=== PATIENT | female | born 1985 | race African-American/Black ===

== ENCOUNTER 2018-08-08 18:21 | Inpatient (IN) | payer OTHER ==
[2018-08-08 18:41] VITALS: BMI 28.3
--- NOTE | 2018-08-08 21:37 | HP ---
CIWA Score - Admission Criteria OASAS Guidelines: Admission for Medically Managed Detox: Requires at least one of the followin. CIWA greater than 12 2. Seizures within the past 24 hours 3. Delirium tremens within the past 24 hours 4. Hallucinations within the past 24 hours 5. Acute intervention needed for co occurring medical disorder 6. Acute intervention needed for co occurring psychiatric disorder 7. Severe withdrawal that cannot be handled at a lower level of care (continued vomiting, continued diarrhea, abnormal vital signs) requiring intravenous medication and/or fluids 8. Admission ROS S - HPI Chief Complaint: Seeking admission to detox. Allergies/Adverse Reactions: Allergies Allergy/AdvReac Type Severity Reaction Status Date / Time No Known Allergies Allergy Verified 08/08/18 18:53 History of Present Illness: 33 years old male with a long history of marijuana dependence and 2 years of laura use is seeking admission to Rehab. This is her first admission to [facility] and first admission to Rehab. Patient has medical history of asthma and anxiety. Reports suicide attempt at age 17 and 33 years respectively and denies suicidal ideation at this time. Exam Limitations: No Limitations - Ebola screening Have you traveled outside of the country in the last 21 days: No (N) Have you had contact with anyone from an Ebola affected area: No Have you been sick,other than usual withdrawal symptoms: No Do you have a fever: No - Review of Systems Constitutional: No Symptoms Reported EENT: reports: No Symptoms Reported Respiratory: reports: No Symptoms reported Cardiac: reports: No Symptoms Reported GI: reports: No Symptoms Reported : reports: No Symptoms Reported Musculoskeletal: reports: No Symptoms Reported Integumentary: reports: No Symptoms Reported Neuro: reports: No Symptoms reported Endocrine: reports: No Symptoms Reported Hematology: reports: No Symptoms Reported Psychiatric: reports: No Sypmtoms Reported, Mood/Affect Appropiate, Orientated x3 Other Systems: Reviewed and Negative Patient History - Patient Medical History Hx Anemia: No Hx Asthma: Yes (Albuterol) Hx Chronic Obstructive Pulmonary Disease (COPD): No Hx Cancer: No Hx Cardiac Disorders: No Hx Congestive Heart Failure: No Hx Hypertension: No Hx Hypercholesterolemia: No Hx Pacemaker: No HX Cerebrovascular Accident: No Hx Seizures: No Hx Dementia: No Hx Diabetes: No Hx Gastrointestinal Disorders: No Hx Liver Disease: No Hx Genitourinary Disorders: No Hx Sexually Transmitted Disorders: No Hx Renal Disease (ESRD): No Hx Thyroid Disease: No Hx Human Immunodeficiency Virus (HIV): No (Negative 18) Hx Hepatitis C: No Hx Depression: Yes (Not on medicatio) Hx Suicide Attempt: Yes (Attempt at age 17 & 33. Denies suicidal idation at this time) Hx Bipolar Disorder: No Hx Schizophrenia: No - Patient Surgical History Past Surgical History: No - PPD History Previous Implant?: Yes Documented Results: Negative w/o proof PPD to be Administered?: Yes - Reproductive History Patient is a Female of Child Bearing Age (11 -55 yrs old): Yes Last Menstrual Period: 07/24/18 - Smoking Cessation Smoking history: Current every day smoker Have you smoked in the past 12 months: Yes Aproximately how many cigarettes per day: 20 Hx Chewing Tobacco Use: No Initiated information on smoking cessation: Yes 'Breaking Loose' booklet given: 08/08/18 - Substance & Tx. History Hx Alcohol Use: Yes Hx Substance Use: Yes Substance Use Type: Alcohol Hx Substance Use Treatment: No Family Disease History - Family Disease History Family History: Denies Admission Physical Exam [facility] - Vital Signs Vital Signs: Vital Signs - 24 hr 08/08/18 18:40 Temperature 98 F Pulse Rate 74 Respiratory 18 Rate Blood Pressure 129/75 - Physical General Appearance: Yes: Within Normal Limits, Appropriately Dressed HEENTM: Yes: EOMI, Normal ENT Inspection, Normocephalic, Normal Voice, BRYANT Respiratory: Yes: Lungs Clear, Normal Breath Sounds, No Respiratory Distress Neck: Yes: Supple Breast: Yes: Breast Exam Deferred Cardiology: Yes: Regular Rhythm, Regular Rate Abdominal: Yes: Normal Bowel Sounds Genitourinary: Yes: Within Normal Limits Back: Yes: Normal Inspection Musculoskeletal: Yes: Within Normal Limits Extremities: Yes: Within Normal Limits, Normal Inspection, Non-Tender Neurological: Yes: flight engineer II-XII NML intact, Normal Mood/Affect, Normal Response Integumentary: Yes: Within Normal Limits Lymphatic: Yes: Within Normal Limits - Diagnostic (1) Asthma Current Visit: Yes Status: Chronic (2) Depression Current Visit: Yes Status: Chronic (3) Nicotine dependence Current Visit: Yes Status: Acute (4) Marijuana dependence Current Visit: Yes Status: Chronic Cleared for Admission [facility] - Detox or Rehab [facility] Level of Care: Observation Bed Claeared for Rehab Admission: Yes [facility] Breath Alcohol Content Breath Alcohol Content: 0 Urine Pregancy Test - Result Urine Test Results: Negative- NO Line Present Urine Drug Screen - Results Drug Screen Negative: No Urine Drug Screen Results: THC-Marijuana Inpatient Rehab Admission - Initial Determination Are CD services needed?: Yes Free of communicable disease: Yes Not in need of hospitalization: Yes - Rehab Admission Criteria Previous failed treatment: Yes Poor recovery environment: Yes Comorbidities: Yes Lacks judgement: No Patient is meeting Inpatient Rehab admission criteria:: Yes
[2018-08-08] MEDS ORDERED: MENTHOL/PHENOL 1 EACH UD MM PRN (21:49)
[2018-08-08] MEDS ORDERED: MAGNESIUM CITRATE 300 ML BOTTLE PO PRN (21:49)
[2018-08-08] MEDS ORDERED: P-EPHED 60MG/TRIPROLIDI 2.5MG TABLET PO PRN (21:49)
[2018-08-08] MEDS ORDERED: guaiFENesin/D-METHORPHAN HB 10 ML UNIT-DOSE CUPS PO PRN (21:49)
[2018-08-08] MEDS ORDERED: MAG HYDROX/AL HYDROX/SIMETH 30 ML UNIT-DOSE CUP PO PRN (21:49)
[2018-08-08] MEDS ORDERED: LOPERAMIDE HCL 2 MG CAPSULE PO PRN (21:49)
--- NOTE | 2018-08-08 21:53 | HP ---
CIWA Score - Admission Criteria OASAS Guidelines: Admission for Medically Managed Detox: Requires at least one of the followin. CIWA greater than 12 2. Seizures within the past 24 hours 3. Delirium tremens within the past 24 hours 4. Hallucinations within the past 24 hours 5. Acute intervention needed for co occurring medical disorder 6. Acute intervention needed for co occurring psychiatric disorder 7. Severe withdrawal that cannot be handled at a lower level of care (continued vomiting, continued diarrhea, abnormal vital signs) requiring intravenous medication and/or fluids 8. Admission ROS S - HPI Allergies/Adverse Reactions: Allergies Allergy/AdvReac Type Severity Reaction Status Date / Time No Known Allergies Allergy Verified 08/08/18 18:53 - Ebola screening Have you traveled outside of the country in the last 21 days: No (N) Have you had contact with anyone from an Ebola affected area: No Have you been sick,other than usual withdrawal symptoms: No Do you have a fever: No Patient History - Patient Medical History Hx Anemia: No Hx Asthma: Yes (Albuterol) Hx Chronic Obstructive Pulmonary Disease (COPD): No Hx Cancer: No Hx Cardiac Disorders: No Hx Congestive Heart Failure: No Hx Hypertension: No Hx Hypercholesterolemia: No Hx Pacemaker: No HX Cerebrovascular Accident: No Hx Seizures: No Hx Dementia: No Hx Diabetes: No Hx Gastrointestinal Disorders: No Hx Liver Disease: No Hx Genitourinary Disorders: No Hx Sexually Transmitted Disorders: No Hx Renal Disease (ESRD): No Hx Thyroid Disease: No Hx Human Immunodeficiency Virus (HIV): No (Negative 18) Hx Hepatitis C: No Hx Depression: Yes (Not on medicatio) Hx Suicide Attempt: No (Attempt at age 17 & 33. Denies suicidal idation at this time) Hx Bipolar Disorder: No Hx Schizophrenia: No - Patient Surgical History Past Surgical History: No - PPD History Previous Implant?: Yes Documented Results: Negative w/o proof - Reproductive History Last Menstrual Period: 07/24/18 - Smoking Cessation Smoking history: Current every day smoker Have you smoked in the past 12 months: Yes Aproximately how many cigarettes per day: 20 Hx Chewing Tobacco Use: No Initiated information on smoking cessation: Yes Admission Physical Exam S - Vital Signs Vital Signs: Vital Signs - 24 hr 08/08/18 18:40 Temperature 98 F Pulse Rate 74 Respiratory 18 Rate Blood Pressure 129/75 [facility] Breath Alcohol Content Breath Alcohol Content: 0 Urine Pregancy Test - Result Urine Test Results: Negative- NO Line Present Urine Drug Screen - Results Drug Screen Negative: No Urine Drug Screen Results: THC-Marijuana
[2018-08-08] MEDS ORDERED: MELATONIN 5 MG TABLETS PO PRN (22:00)
[2018-08-09] MEDS ORDERED: TUBERCULIN PPD 5 TU/0.1ML VIAL ID ONE (00:04)
[2018-08-09] MEDS: THIAMINE HCL 100 MG TABLET (FP) PO SCH ×2 (00:11→21:47)
[2018-08-09 00:38] LABS: URINE APPEARANCE CLEAR; URINE BILIRUBIN NEGATIVE (<2.0 mg/dL); URINE COLOR YELLOW; URINE GLUCOSE (UA) NEGATIVE (NEGATIVE); URINE KETONE NEGATIVE (NEGATIVE); URINE LEUK ESTERASE NEGATIVE (NEGATIVE); URINE NITRITE NEGATIVE (NEGATIVE); URINE PROTEIN NEGATIVE (NEGATIVE)
[2018-08-09] MEDS: PRENATAL VITAMINS W/ FOLIC ACID TABLET (FP) PO SCH (09:31)
[2018-08-09] MEDS: NICOTINE 14 MG/24 HOURS TOPICAL PATCH TD SCH (09:31)
--- NOTE | 2018-08-09 10:07 | EKG ---
Test Reason : Blood Pressure : / mmHG Vent. Rate : 074 BPM Atrial Rate : 074 BPM P-R Int : 146 ms QRS Dur : 090 ms QT Int : 394 ms P-R-T Axes : 032 080 060 degrees QTc Int : 437 ms NORMAL SINUS RHYTHM NORMAL ECG NO PREVIOUS ECGS AVAILABLE Confirmed by JUVENTINO MINER, RIO ([id number]) on 08/09/2018 10:06:51 AM Referred By: Confirmed By:RIO JAUREGUI MD
[2018-08-09 10:35] LABS: ALBUMIN 3.7 g/dl (3.4-5.0); ALK PHOS 73 U/L (45-117); ANION GAP 4 MMOL/L (8-16); BILIRUBIN,TOTAL 0.2 mg/dL (0.2-1); BLOOD UREA NITROGEN 17 mg/dL (7-18); CALCIUM 9.1 mg/dL (8.5-10.1); CHLORIDE 105 mmol/L (98-107); CO2 30 mmol/L (21-32); CREATININE 0.8 mg/dL (0.55-1.3); GLUCOSE,RANDOM 83 mg/dL (74-106); POTASSIUM 4.6 mmol/L (3.5-5.1); SGOT/AST 24 U/L (15-37); SGPT/ALT 29 U/L (13-61); SODIUM 138 mmol/L (136-145); TOT PROT 7.2 g/dl (6.4-8.2)
[2018-08-09 10:39] LABS: HEMATOCRIT 39.5 % (32.4-45.2); HEMOGLOBIN 12.5 GM/dL (10.7-15.3); MCH 27.4 pg (25.7-33.7); MCHC 31.5 g/dl (32.0-36.0); MEAN CELL VOLUME 86.9 fl (80-96); MEAN PLT VOLUME 9.9 fl (7.5-11.1); PLATELET COUNT 281 K/MM3 (134-434); RBC 4.55 M/mm3 (3.60-5.2); RDW 15.3 % (11.6-15.6); WHITE BLOOD COUNT 6.2 K/mm3 (4.0-10.0)
[2018-08-09] MEDS ORDERED: PNEUMOCOCCAL 23 VACCINE 0.5 ML VIAL IM ONE (12:00)
[2018-08-09] MEDS ORDERED: PNEUMOC 13-VAL CONJ-DIP CRM/PF 0.5 ML DISP.SYRIN IM ONE (12:00)
[2018-08-09] MEDS: hydrOXYzine PAMOATE 50 MG CAPSULE (FP) PO PRN ×2 (13:05→17:49)
--- NOTE | 2018-08-09 15:27 | HP ---
Psychiatrist Admission - Data Date of interview: 08/09/18 Admission source: Transfer from [address] [place] [address] Identifying data: First admission to [facility] for this 33 y/o AA female, referred to [address] for rehabilitation to address cocaine, cannabis and ecstasy dependence. Patient is single, a mother of three, domiciled, unemployed and supported on welfare. Medical History: Bronchial asthma. Physical/Sexual Abuse/Trauma History: Patient denies history of mental illness or hospitalizations. Ms Orozco admits to a history of impulsive behaviors (drug use + self-mutilation). Wrist-cutting at age 17. Never sought psychiatric care. Additional Comment: Profile of substance abuse. Discussed in this session. Details in current [facility] report : Smoking history: Current every day smoker. Have you smoked in the past 12 months: Yes. Aproximately how many cigarettes per day: 20. Hx Chewing Tobacco Use: No. Initiated information on smoking cessation: Yes. 'Breaking Loose' booklet given: 08/08/18. - Substance & Tx. History. Hx Alcohol Use: Yes. Hx Substance Use: Yes. Substance Use Type: Alcohol. Hx Substance Use Treatment: No. Urine Drug Screen Results: THC- Marijuana. Noted. Vital Signs: Vital Signs - 24 hr 08/08/18 08/08/18 08/09/18 18:40 22:28 03:30 Temperature 98 F 98.6 F Pulse Rate 74 75 Respiratory 18 18 18 Rate Blood Pressure 129/75 120/83 08/09/18 07:02 Temperature 98.0 F Pulse Rate 65 Respiratory 18 Rate Blood Pressure 110/80 Allergies/Adverse Reactions: Allergies Allergy/AdvReac Type Severity Reaction Status Date / Time No Known Allergies Allergy Verified 08/08/18 18:53 - Substance Abuse/Tx History Hx Alcohol Use: No Hx Substance Use: Yes (ecstasy, cannabis, cocaine, nicotine) Substance Use Type: Cocaine (since age 27 ; spends 100 dollars daily on drugs, all combined), Marijuana (since age 17) Hx Substance Use Treatment: No Mental Status Exam - Mental Status Exam Alert and Oriented to: Time, Place, Person Cognitive Function: Good Patient Appearance: Well Groomed (overweight) Mood: Apprehensive, Hopeful Affect: Appropriate, Normal Range Patient Behavior: Fatigued, Cooperative Speech Pattern: Clear, Appropriate Voice Loudness: Normal Thought Process: Intact, Goal Oriented Thought Disorder: Not Present Hallucinations: Denies Suicidal Ideation: Denies Homicidal Ideation: Denies Insight/Judgement: Fair Sleep: Poorly, Difficulty falling asleep Appetite: Good Muscle strength/Tone: Normal Gait/Station: Normal Psychiatric Findings - Problem List ([place] 1, 2,3) (1) Marijuana dependence Current Visit: Yes Status: Acute (2) Nicotine dependence Current Visit: Yes Status: Acute (3) Insomnia Current Visit: Yes Status: Acute - Initial Treatment Plan Initial Treatment Plan: Psychoeducation. Sleep hygiene. Motivational rounds about relapse prevention. Psychotherapy (group, supportive, cognitive). Insomnia will be addressed with trazodone 50 mg po hs. Side effects/benefits discussed with the patient. Consent (verbal) : given. Observation.
[2018-08-09] MEDS: MAGNESIUM HYDROX 2400MG/30ML ORAL SUSPENSION 30 ML CUP PO PRN (20:13)
[2018-08-09] MEDS: traZODone HCL 50 MG TABLET (FP) PO SCH (21:48)
[2018-08-10] MEDS: hydrOXYzine PAMOATE 50 MG CAPSULE (FP) PO PRN ×4 (06:17→21:37)
[2018-08-10] MEDS: ACETAMINOPHEN 325 MG TABLET (FP) PO PRN ×2 (07:15→17:41)
[2018-08-10] MEDS: PRENATAL VITAMINS W/ FOLIC ACID TABLET (FP) PO SCH (10:01)
[2018-08-10] MEDS: NICOTINE 14 MG/24 HOURS TOPICAL PATCH TD SCH (10:01)
[2018-08-10] MEDS ORDERED: ALBUTEROL SO4 8 GM HFA INHALER IH PRN (13:47)
[2018-08-10] MEDS ORDERED: ALBUTEROL SO4 2.5/IPRATROPIUM 0.5 INH SOL 3 ML VIAL.NEB. NEB PRN (13:48)
--- NOTE | 2018-08-10 13:51 | PN ---
[facility] Progress Note Note: history of asthma,albuterol inhaler q 4 hrs prn and duoneb nebulizer prn q 6 hrs ordered
[2018-08-10] MEDS: NICOTINE POLACRILEX 2 MG GUM BC PRN (14:13)
[2018-08-10] MEDS: IBUPROFEN 400 MG TABLET (FP) PO PRN (14:13)
[2018-08-10] MEDS: traZODone HCL 50 MG TABLET (FP) PO SCH (21:37)
[2018-08-10] MEDS: THIAMINE HCL 100 MG TABLET (FP) PO SCH (21:37)
[2018-08-11] MEDS: hydrOXYzine PAMOATE 50 MG CAPSULE (FP) PO PRN ×4 (06:18→20:51)
[2018-08-11] MEDS: PRENATAL VITAMINS W/ FOLIC ACID TABLET (FP) PO SCH (09:57)
[2018-08-11] MEDS: NICOTINE 14 MG/24 HOURS TOPICAL PATCH TD SCH (09:57)
--- NOTE | 2018-08-11 12:07 | PN ---
Psychiatric Progress Note Vital Signs: Vital Signs Period Temp Pulse Resp BP Sys/Connelly Pulse Ox Last 24 Hr 98.1 F 74 18-18 125/75 Date of Session: 08/11/18 Chief Complaint:: "I miss my children." HPI: Patient admitted to [facility] rehab for cocaine, cannabis and ecstasy dependence. ROS: Bronchial asthma Current Medications: Active Medications Generic Name Dose Route Start Last Admin Trade Name Freq PRN Reason Stop Dose Admin Acetaminophen 650 mg 08/08/18 21:49 08/10/18 17:41 Tylenol - PO 650 mg Q4H PRN Administration FEVER Al Hydroxide/Mg Hydroxide 30 ml 08/08/18 21:49 Mylanta Oral Suspension - PO Q6H PRN DYSPEPSIA Albuterol Sulfate 2 puff 08/10/18 13:47 Ventolin Hfa Inhaler - IH Q4H PRN SHORT OF BREATH/WHEEZING Albuterol/Ipratropium 1 amp 08/10/18 13:48 Duoneb - NEB Q6H PRN SHORTNESS OF BREATH Eucalyptus/Menthol/Phenol/Sorbitol 1 each 08/08/18 21:49 Cepastat Lozenge - MM Q4H PRN SORE THROAT Guaifenesin 10 ml 08/08/18 21:49 Robitussin Dm - PO Q6H PRN COUGH Hydroxyzine Pamoate 50 mg 08/09/18 12:59 08/11/18 10:33 Vistaril - PO 50 mg Q4H PRN Administration FOR ITCHING Ibuprofen 400 mg 08/08/18 21:49 08/10/18 14:13 Motrin - PO 400 mg Q6H PRN Administration Pain level 4-6 Loperamide HCl 4 mg 08/08/18 21:49 Imodium - PO Q6H PRN DIARRHEA Magnesium Citrate 300 ml 08/08/18 21:49 08/10/18 18:23 Citroma - PO 300 ml Q48H PRN Administration CONSTIPATION Magnesium Hydroxide 30 ml 08/08/18 21:49 08/09/18 20:13 Milk Of Magnesia - PO 30 ml DAILY PRN Administration CONSTIPATION Nicotine 14 mg 08/09/18 10:00 08/11/18 09:57 Nicoderm Patch - TD 14 mg DAILY ALEJANDRA Administration Nicotine Polacrilex 2 mg 08/08/18 21:49 08/10/18 14:13 Nicorette Gum - BC 2 mg Q2H PRN Administration NICOTINE REPLACEMENT RX Multivit/Folic Acid/Iron 1 tab 08/09/18 10:00 08/11/18 09:57 Vitamins (Sjr) - PO 1 tab DAILY ALEJANDRA Administration Pseudoephedrine/Triprolidine 1 combo 08/08/18 21:49 Actifed - PO TID PRN NASAL CONGESTION Thiamine HCl 100 mg 08/08/18 22:00 08/10/18 21:37 Vitamin B1 - PO 100 mg HS ALEJANDRA Administration Trazodone HCl 50 mg 08/09/18 22:00 08/10/18 21:37 Desyrel - PO 50 mg HS ALEJANDRA Administration Medication(s) Change(s): Will add gabapentin 200mg TID Current Side Effect: No Lab tests ordered: No Lab tests reviewed: Yes Provider note:: Ship Officer called by nursing staff after patient reported having thoughts to cut herself earlier today. Dr. Beckwith note read and appreciated. Patient admitted to for cocaine, cannabis and ecstasy dependence. Patient able to communicate effectively with senior technical writer. She reports feeling isolated and states her family "cut me off after i lost my children due to my drug use." She reports having three children, ages 9,11, and 14. She reports having thoughts to hurt herself this morning after thinking of her children and knowing she can' t speak to them until she is done with this program. She reports increase anxiety and becoming easily irritable secondary to missing her children. States CPS took her children away on 06/13/17. She reports h/o self multilation behavior via cutting on her left forearm, most recently last week. Patient has been able to utilize the vistaril 50mg q4h with good effect but states she may need additional medications when the vistaril is unavailable. Patient currently denies thoughts or urges to hurt herself. State she can speak to staff if these urges reoccur. Patient was able to speak to staff earlier. Pt. agreeable to starting gabapentin 200mg TID to help with anxiety in addition to utilizing vistaril 50mg prn. Benefits and side effects discussed. Verbal consent given. Total face to face time:: 25 Mental Status Exam - Mental Status Exam Alert and Oriented to: Time, Place, Person Cognitive Function: Good Patient Appearance: Well Groomed Mood: Hopeful, Euthymic Affect: Appropriate Patient Behavior: Appropriate, Cooperative Speech Pattern: Clear, Appropriate Voice Loudness: Normal Thought Process: Intact, Goal Oriented Thought Disorder: Not Present Hallucinations: Denies Suicidal Ideation: Denies Homicidal Ideation: Denies Insight/Judgement: Poor Sleep: Fair Appetite: Fair Muscle strength/Tone: Normal Gait/Station: Normal Psychiatric Treatment Plan - Problem List (1) Substance induced mood disorder Current Visit: Yes (2) Insomnia Current Visit: Yes (3) Marijuana dependence Current Visit: Yes (4) Nicotine dependence Current Visit: Yes
[2018-08-11] MEDS: GABAPENTIN 100 MG CAPSULE (FP) PO SCH ×2 (14:04→21:16)
[2018-08-11] MEDS: NICOTINE POLACRILEX 2 MG GUM BC PRN (17:47)
[2018-08-11] MEDS: IBUPROFEN 400 MG TABLET (FP) PO PRN (19:36)
[2018-08-11] MEDS: traZODone HCL 50 MG TABLET (FP) PO SCH (21:17)
[2018-08-11] MEDS: THIAMINE HCL 100 MG TABLET (FP) PO SCH (21:18)
[2018-08-12] MEDS: hydrOXYzine PAMOATE 50 MG CAPSULE (FP) PO PRN ×4 (06:30→19:19)
[2018-08-12] MEDS: GABAPENTIN 100 MG CAPSULE (FP) PO SCH ×3 (06:30→21:19)
[2018-08-12] MEDS: NICOTINE POLACRILEX 2 MG GUM BC PRN ×2 (09:03→13:49)
[2018-08-12] MEDS: PRENATAL VITAMINS W/ FOLIC ACID TABLET (FP) PO SCH (10:01)
[2018-08-12] MEDS: NICOTINE 14 MG/24 HOURS TOPICAL PATCH TD SCH (10:01)
[2018-08-12] MEDS: traZODone HCL 50 MG TABLET (FP) PO SCH (21:19)
[2018-08-12] MEDS: THIAMINE HCL 100 MG TABLET (FP) PO SCH (21:19)
[2018-08-13] MEDS: hydrOXYzine PAMOATE 50 MG CAPSULE (FP) PO PRN ×5 (06:45→23:02)
[2018-08-13] MEDS: GABAPENTIN 100 MG CAPSULE (FP) PO SCH ×3 (06:45→21:25)
[2018-08-13] MEDS: NICOTINE POLACRILEX 2 MG GUM BC PRN (08:40)
[2018-08-13] MEDS: NICOTINE 14 MG/24 HOURS TOPICAL PATCH TD SCH (10:09)
[2018-08-13] MEDS: PRENATAL VITAMINS W/ FOLIC ACID TABLET (FP) PO SCH (10:09)
[2018-08-13] MEDS: MAGNESIUM HYDROX 2400MG/30ML ORAL SUSPENSION 30 ML CUP PO PRN (15:10)
[2018-08-13] MEDS: traZODone HCL 50 MG TABLET (FP) PO SCH (21:25)
[2018-08-13] MEDS: THIAMINE HCL 100 MG TABLET (FP) PO SCH (21:25)
[2018-08-14] MEDS: hydrOXYzine PAMOATE 50 MG CAPSULE (FP) PO PRN ×3 (06:47→17:05)
[2018-08-14] MEDS: GABAPENTIN 100 MG CAPSULE (FP) PO SCH ×3 (06:47→21:32)
[2018-08-14] MEDS: PRENATAL VITAMINS W/ FOLIC ACID TABLET (FP) PO SCH (09:47)
[2018-08-14] MEDS: NICOTINE 14 MG/24 HOURS TOPICAL PATCH TD SCH (09:47)
[2018-08-14] MEDS: PARoxetine HCL 10 MG TABLET (FP) PO SCH (11:58)
[2018-08-14] MEDS: MAGNESIUM HYDROX 2400MG/30ML ORAL SUSPENSION 30 ML CUP PO PRN (18:20)
[2018-08-14] MEDS ORDERED: PT OWN MED DRAWER 7, Y5N ONE (21:06)
[2018-08-14] MEDS: THIAMINE HCL 100 MG TABLET (FP) PO SCH (21:32)
[2018-08-14] MEDS: traZODone HCL 100 MG TABLET (FP) PO SCH (21:33)
[2018-08-15] MEDS: GABAPENTIN 100 MG CAPSULE (FP) PO SCH ×3 (06:53→21:09)
[2018-08-15] MEDS: hydrOXYzine PAMOATE 50 MG CAPSULE (FP) PO PRN ×4 (06:53→18:55)
[2018-08-15] MEDS: PRENATAL VITAMINS W/ FOLIC ACID TABLET (FP) PO SCH (09:53)
[2018-08-15] MEDS: PARoxetine HCL 10 MG TABLET (FP) PO SCH (09:53)
[2018-08-15] MEDS: NICOTINE 14 MG/24 HOURS TOPICAL PATCH TD SCH (09:53)
[2018-08-15] MEDS: NICOTINE POLACRILEX 2 MG GUM BC PRN (09:54)
--- NOTE | 2018-08-15 11:31 | PN ---
[facility] Progress Note Note: HX ECZEMA. REQUESTING HYDROCORTISONE CREAM. Vital Signs 08/15/18 06:56 Temperature 98.6 F Pulse Rate 87 Respiratory 18 Rate Blood Pressure 95/63 SKIN:DARK DISCOLORATION OF SKIN RASH ON UPPER CHEST AREA/SHOULDER. PLAN:HYTONE CREAM 1% APPLY TO AFFECTED AREAS TID.
[2018-08-15] MEDS ORDERED: PT OWN MED DRAWER 7, Y5N ONE (14:10)
[2018-08-15] MEDS: HYDROCORTISONE 1% TOPICAL CREAM 30 GM TUBE TP SCH ×2 (14:33→21:09)
[2018-08-15] MEDS: THIAMINE HCL 100 MG TABLET (FP) PO SCH (21:09)
[2018-08-15] MEDS: traZODone HCL 100 MG TABLET (FP) PO SCH (21:09)
[2018-08-16] MEDS ORDERED: PT OWN MED DRAWER 7, Y5N ONE ×3 (03:18→21:08)
[2018-08-16] MEDS: GABAPENTIN 100 MG CAPSULE (FP) PO SCH ×3 (05:55→21:10)
[2018-08-16] MEDS: hydrOXYzine PAMOATE 50 MG CAPSULE (FP) PO PRN ×4 (05:55→21:10)
[2018-08-16] MEDS: HYDROCORTISONE 1% TOPICAL CREAM 30 GM TUBE TP SCH ×3 (05:56→21:11)
[2018-08-16] MEDS: PRENATAL VITAMINS W/ FOLIC ACID TABLET (FP) PO SCH (09:44)
[2018-08-16] MEDS: PARoxetine HCL 10 MG TABLET (FP) PO SCH (09:44)
[2018-08-16] MEDS: NICOTINE 14 MG/24 HOURS TOPICAL PATCH TD SCH (09:44)
[2018-08-16] MEDS: THIAMINE HCL 100 MG TABLET (FP) PO SCH (21:10)
[2018-08-16] MEDS: traZODone HCL 100 MG TABLET (FP) PO SCH (21:10)
[2018-08-17] MEDS ORDERED: PT OWN MED DRAWER 7, Y5N ONE ×4 (03:40→23:08)
[2018-08-17] MEDS: HYDROCORTISONE 1% TOPICAL CREAM 30 GM TUBE TP SCH ×3 (06:35→21:13)
[2018-08-17] MEDS: hydrOXYzine PAMOATE 50 MG CAPSULE (FP) PO PRN ×4 (06:35→19:01)
[2018-08-17] MEDS: GABAPENTIN 100 MG CAPSULE (FP) PO SCH ×3 (06:35→21:12)
[2018-08-17] MEDS: NICOTINE 14 MG/24 HOURS TOPICAL PATCH TD SCH (09:47)
[2018-08-17] MEDS: PARoxetine HCL 10 MG TABLET (FP) PO SCH (09:48)
[2018-08-17] MEDS: PRENATAL VITAMINS W/ FOLIC ACID TABLET (FP) PO SCH (09:48)
[2018-08-17] MEDS: traZODone HCL 100 MG TABLET (FP) PO SCH (21:12)
[2018-08-17] MEDS: THIAMINE HCL 100 MG TABLET (FP) PO SCH (21:12)
[2018-08-18] MEDS ORDERED: PT OWN MED DRAWER 7, Y5N ONE (00:12)
[2018-08-18] MEDS: GABAPENTIN 100 MG CAPSULE (FP) PO SCH (06:09)
[2018-08-18] MEDS: hydrOXYzine PAMOATE 50 MG CAPSULE (FP) PO PRN (06:10)
[2018-08-18] MEDS: HYDROCORTISONE 1% TOPICAL CREAM 30 GM TUBE TP SCH (06:11)
[2018-08-18 06:52] VITALS: BP 131/76; PULSE 87; TEMP 97.8
--- NOTE | 2018-08-18 09:34 | PN ---
Psychiatric Progress Note Vital Signs: Vital Signs Period Temp Pulse Resp BP Sys/Connelly Pulse Ox Last 24 Hr 97.8 F 87 17-18 131/76 Date of Session: 08/18/18 Chief Complaint:: Discharge visit HPI: Patient addressed Cannabis,Exctasy ,Methamphetamine dependence comorbid with Substance induced mood diosrder. ROS: BA. Current Medications: Active Medications Generic Name Dose Route Start Last Admin Trade Name Freq PRN Reason Stop Dose Admin Acetaminophen 650 mg 08/08/18 21:49 08/10/18 17:41 Tylenol - PO 650 mg Q4H PRN Administration FEVER Al Hydroxide/Mg Hydroxide 30 ml 08/08/18 21:49 08/17/18 13:47 Mylanta Oral Suspension - PO 30 ml Q6H PRN Administration DYSPEPSIA Albuterol Sulfate 2 puff 08/10/18 13:47 Ventolin Hfa Inhaler - IH Q4H PRN SHORT OF BREATH/WHEEZING Eucalyptus/Menthol/Phenol/Sorbitol 1 each 08/08/18 21:49 Cepastat Lozenge - MM Q4H PRN SORE THROAT Gabapentin 200 mg 08/11/18 14:00 08/18/18 06:09 Neurontin - PO 200 mg TID ALEJANDRA Administration Guaifenesin 10 ml 08/08/18 21:49 Robitussin Dm - PO Q6H PRN COUGH Hydrocortisone 1 applic 08/15/18 14:00 08/18/18 06:11 Hytone 1% Cream - TP Not Given TID ALEJANDRA Hydroxyzine Pamoate 50 mg 08/09/18 12:59 08/18/18 06:10 Vistaril - PO 50 mg Q4H PRN Administration FOR ITCHING Ibuprofen 400 mg 08/08/18 21:49 08/11/18 19:36 Motrin - PO 400 mg Q6H PRN Administration Pain level 4-6 Loperamide HCl 4 mg 08/08/18 21:49 Imodium - PO Q6H PRN DIARRHEA Magnesium Citrate 300 ml 08/08/18 21:49 08/10/18 18:23 Citroma - PO 300 ml Q48H PRN Administration CONSTIPATION Magnesium Hydroxide 30 ml 08/08/18 21:49 08/14/18 18:20 Milk Of Magnesia - PO 30 ml DAILY PRN Administration CONSTIPATION Nicotine 14 mg 08/09/18 10:00 08/17/18 09:47 Nicoderm Patch - TD 14 mg DAILY ALEJANDRA Administration Nicotine Polacrilex 2 mg 08/08/18 21:49 08/15/18 09:54 Nicorette Gum - BC 2 mg Q2H PRN Administration NICOTINE REPLACEMENT RX Paroxetine HCl 10 mg 08/14/18 11:00 08/17/18 09:48 Paxil - PO 10 mg DAILY ALEJANDRA Administration Multivit/Folic Acid/Iron 1 tab 08/09/18 10:00 08/17/18 09:48 Vitamins (Sjr) - PO 1 tab DAILY ALEJANDRA Administration Pseudoephedrine/Triprolidine 1 combo 08/08/18 21:49 08/12/18 10:47 Actifed - PO 1 combo TID PRN Administration NASAL CONGESTION Thiamine HCl 100 mg 08/08/18 22:00 08/17/18 21:12 Vitamin B1 - PO 100 mg HS ALEJANDRA Administration Trazodone HCl 100 mg 08/14/18 22:00 08/17/18 21:12 Desyrel - PO 100 mg HS ALEJANDRA Administration Current Side Effect: No Lab tests ordered: No Lab tests reviewed: Yes Provider note:: Patient completed this program today.She ahs met her treatment goals and will continue to address her issues on outpatient basis at [facility].patient will continue currrent medications as per pna.Scripts for 30 days provided. Supportive therapy provided focusing oin relapse prevention. Patient is stable for discharge today.Scripts for Trazodone 100 mg o hs ,Paxil 10 mg po daily and Neurontin 200 mg po tid provided . Mental Status Exam - Mental Status Exam Alert and Oriented to: Time, Place, Person Cognitive Function: Grossly Intact Patient Appearance: Well Groomed Mood: Euthymic Affect: Appropriate, Normal Range Patient Behavior: Cooperative Speech Pattern: Clear Voice Loudness: Normal Thought Process: Goal Oriented Thought Disorder: Not Present Hallucinations: Denies Suicidal Ideation: Denies Homicidal Ideation: Denies Insight/Judgement: Fair Sleep: Fair Appetite: Good Muscle strength/Tone: Normal Gait/Station: Normal Psychiatric Treatment Plan - Problem List (1) Marijuana dependence Current Visit: Yes (2) Nicotine dependence Current Visit: Yes (3) Substance induced mood disorder Current Visit: Yes (4) Asthma Current Visit: Yes (5) Methamphetamine dependence Current Visit: Yes
[2018-08-18] MEDS: NICOTINE 14 MG/24 HOURS TOPICAL PATCH TD SCH (09:41)
[2018-08-18] MEDS: PRENATAL VITAMINS W/ FOLIC ACID TABLET (FP) PO SCH (09:41)
[2018-08-18] MEDS: PARoxetine HCL 10 MG TABLET (FP) PO SCH (09:41)
== END 2018-08-18 09:58 | disposition home or self-care (01) | DRG 772 ==
LOC: YASAS 18:21 → Y3E 22:28
PROVIDERS: ADMIT Psychiatry & Neurology Psychiatry; ATTEND Psychiatry & Neurology Psychiatry
PROC: HZ42ZZZ Group Counseling for Substance Abuse Treatment, Cognitive-Behavioral (ICD-10-PCS; principal; 2018-08-08)
DX: F12.20 Cannabis dependence, uncomplicated (principal); F17.210 Nicotine dependence, cigarettes, uncomplicated; F19.24 Other psychoactive substance dependence with psychoactive substance-induced mood disorder; F32.9 Major depressive disorder, single episode, unspecified; J45.909 Unspecified asthma, uncomplicated; R21 Rash and other nonspecific skin eruption; G47.00 Insomnia, unspecified; Z91.5 Personal history of self-harm
CPT/HCPCS: 36415; 80053; 81003; 85027; 86593; 87389; 90732; 93005; 93010; G0009